=== PATIENT | female | born 1985 | race Two or more races ===

== ENCOUNTER 2021-01-29 21:38 | Inpatient (IN) | payer OTHER ==
[~2021-01-29] VITALS: Ht 162.6 cm; Wt 3.2 kg
[2021-01-30] MEDS ORDERED: PRENATAL CAPLE1 EAC1 PO (11:24)
== END 2021-02-02 13:48 | disposition home or self-care (01) | DRG 785 ==
LOC: LDR 21:38 → OB/GYN 01-30 14:57
PROVIDERS: ADMIT Obstetrics & Gynecology; ATTEND Obstetrics & Gynecology
PROC: 4A1HXFZ Monitoring of Products of Conception, Cardiac Rhythm, External Approach (ICD-10-PCS; 2021-01-29)
PROC: 0UB70ZZ Excision of Bilateral Fallopian Tubes, Open Approach (ICD-10-PCS; 2021-01-30)
PROC: 10D00Z1 Extraction of Products of Conception, Low, Open Approach (ICD-10-PCS; principal; 2021-01-30 23:30)
DX: O13.4 Gestational [pregnancy-induced] hypertension without significant proteinuria, complicating childbirth (principal); O34.211 Maternal care for low transverse scar from previous cesarean delivery; Z30.2 Encounter for sterilization; Z3A.38 38 weeks gestation of pregnancy; Z37.0 Single live birth